=== PATIENT | female | born 1955 | race Hispanic/Latino ===

== ENCOUNTER 2022-06-17 23:33 | Emergency (ER) | payer MEDICARE ==
[~2022-06-17] VITALS: Ht 160 cm; Wt 79.4 kg
[2022-06-17] MEDS ORDERED: KETOROLAC TROMETHAMINE 30 MG/ML VIAL IM STA (23:54)
[2022-06-18] MEDS ORDERED: KETOROLAC TROMETHAMINE 30 MG/ML VIAL ONE (00:13)
[2022-06-18] MEDS ORDERED: KETOROLAC TROME10 MG PO (00:40)
[2022-06-18 00:48] VITALS: BP 179/74
== END 2022-06-18 00:48 | disposition home or self-care (01) ==
LOC: FSED 23:37
DX: M25.561 Pain in right knee (principal); M76.891 Other specified enthesopathies of right lower limb, excluding foot
CPT/HCPCS: 73562; 96372; 99283; J1885